=== PATIENT | male | born 1995 | race Caucasian/White ===

== ENCOUNTER 2017-07-04 22:04 | Emergency (ER) | payer OTHER ==
[~2017-07-04] VITALS: Ht 177.8 cm; Wt 87.0 kg
[2017-07-04 22:21] VITALS: Ht 177.8 cm; Wt 87.0 kg
[2017-07-05] MEDS ORDERED: ONDANSETRON 4 MG INJ IV STA (00:21)
--- NOTE | 2017-07-05 00:21 | ERD ---
ER Documentation Chief Complaint Date/Time DATE: 07/05/17 TIME: 00:19 Chief Complaint C/O MARIJUANNA OVERDOSE, RESTLESS HPI ingested infused candy bar 50 gm THC ROS All systems reviewed and are negative except as per history of present illness. Allergies Allergies: Coded Allergies: No Known Allergy (Unverified , 10/22/14) PMhx/Soc Medical and Surgical Hx: pt denies Medical Hx, pt denies Surgical Hx Hx Alcohol Use: No Hx Substance Use: Yes (marijuana) Hx Tobacco Use: Yes Smoking Status: Current every day smoker Physical Exam Vitals Vital Signs Date Time Temp Pulse Resp B/P Pulse Ox O2 Delivery O2 Flow Rate FiO2 07/04/17 22:21 100.0 105 17 136/79 97 Physical Exam Const: Well-nourished well-hydrated [id number] male patient no acute distress Head: Atraumatic Eyes: Normal Conjunctiva pupils round reactive to light and accommodation. ENT: Normal External Ears, Nose and Mouth. Neck: Resp: Clear to auscultation bilaterally no rales wheezes or rhonchi Cardio: S1-S2, no S3-S4 regular rate and rhythm, no murmurs Abd: Soft, non tender, non distended Skin: Back: Ext: Neuro: drowsy slow to respond, oriented Face: EOMI, face and pharynx with normal sensation and function Motor: Normal strength throughout Sensation: Normal sensation throughout Speech: Slow and slurred Cerebel: Normal coordination Psych: Normal Mood and Affect is under the influence of marijuana. Reactions are slow, speech is slow and slightly slurred. Patient is having difficult time keeping eyes open. Results 24 hrs Laboratory Tests Test 07/05/17 01:53 Urine Opiates Screen Negative Urine Barbiturates Negative Urine Amphetamines Screen Negative Urine Benzodiazepines Screen Negative Urine Cocaine Screen Negative Urine Cannabinoids Positive Current Medications Medications (Trade) Dose Ordered Sig/Sebastián Route PRN Reason Start Time Stop Time Status Last Admin Dose Admin Sodium Chloride (NS) 1,000 ml @ 1,000 mls/hr Q1H ONCE IV 07/05/17 00:30 07/05/17 01:30 DC 07/05/17 00:56 Ondansetron HCl (Zofran Inj) 4 mg ONCE STAT IV 07/05/17 00:21 07/05/17 00:23 DC 07/05/17 00:56 Procedures/MDM This 21-year-old male patient presents to emergency department after ingesting a cannabis infused candy bar. Patient reports he does not normally and just cannabis, admits to smoking cigarettes denies smoking marijuana denies any street drug use. Patient is brought in by mother. Patient reports he is not feeling well he is sedated having difficulty keeping eyes open. Physical exam shows intoxication with no gross neuro deficit. Patient reports nausea without vomiting. Emergency room course today includes 1 L of normal saline and 4 mg of IV Zofran. Patient urine was sent for drug screen and urinalysis. Results are pending at this time. Patient reassessed after interventions completed. Patient reports he is feeling better. He still is sedated. Mother requesting to be discharged home. Urine drug screen is positive for cannabis, negative for opiates, barbiturates, amphetamine, benzodiazepine, or cocaine.Patient is stable with no new complaints during ER course, clinically there is no current evidence to suggest drug overdose, self-harm, bronchitis or any other emergent condition appearing to require further evaluation or hospitalization. I feel the patient is stable for discharge at this time. I have discussed results, examination findings, the treatment plan with the patient and family present prior to discharge. Indications for emergent reevaluation, side effects of medication were also discussed. All questions were answered. Patient verbalizes understanding and agrees with plan of care. Departure Diagnosis: Primary Impression: Drug abuse Condition: Good Patient Instructions: Drug Abuse Referrals: [facility] Additional Instructions: Thank you for for coming to [facility] for your care today. Please ask your nurse or provider if you have questions about your care today and do not leave until all your questions have been answered. Please use any medications given as directed and follow-up with your doctor (or the doctor you were referred to) in the next 2-3 days. If you do not have a primary care doctor you may follow up at the [facility] (listed below). You may also use motrin and tylenol as needed for fever and/or pain unless instructed otherwise by your provider or nurse. Indications for more urgent follow-up have been discussed, but you may return to the Emergency Department at ANY time for any worrisome or worsening symptoms. If you have abdominal pain, please know that no test or exam you received is perfect and you should follow up within 8 hours for continued pain. If you had any imaging studies today, such as an X-Ray or CT Scan, these studies will be reviewed later by a radiologist. You will be called if there are important findings that were not identified today, so make sure the contact information you provided at registration is correct. If you received any narcotic pain control medicine today, such as Vicodin, Morphine or Dilaudid, your coordination and judgment may be affected for a number of hours. Please do not drive or operate heavy machinery, and you may want someone to assist you at home. If you were given a prescription for narcotic medication, be aware that it is very addictive- use sparingly and only if necessary. YANDEL LEON Jul 05, 2017 00:21
[2017-07-05] MEDS ORDERED: SOD CHLORIDE 0.9% 1,000 ML IV ONE (00:30)
[2017-07-05 03:37] LABS: BARBITURATES Negative (NEGATIVE); BENZODIAZEPINES Negative (NEGATIVE); CANNABINOIDS Positive (NEGATIVE); COCAINE Negative (NEGATIVE); OPIATES Negative (NEGATIVE)
== END 2017-07-05 03:54 | disposition home or self-care (01) ==
LOC: FTE 22:04
DX: F12.10 Cannabis abuse, uncomplicated (principal); F17.210 Nicotine dependence, cigarettes, uncomplicated
CPT/HCPCS: 80307; 96374; J2405; J7030; Z7502